=== PATIENT | female | born 1935 | race Caucasian/White ===

== ENCOUNTER → 2018-12-13 | Outpatient (CLI) | payer MEDICARE, OTHER ==
--- NOTE | 2018-12-15 16:30 | RADRPT ---
Echocardiogram Report Patient Name: TEODORO MEJIAPatient ID: [id number] : 1935 (83y 4m)Study Date: 12/13/2018 10:08:36 AM Gender: FAccession #: [id number] Tech: Willow Lo RDCS Location: ER Ref.Physician: JESSEE RAMIREZ Height(Cm): BSA: Weight(Kg): Quality: AdequateAccount #: Procedures: Echocardiographic Report: Transthoracic echocardiogram with complete 2D, M-Mode, and doppler examination. Indications: Mitral regurgitation. Measurements: 2D/M Mode Doppler Measurement Value Normal Range Measurement Value Normal Range LVIDd 2D 3.8 [ 3.8 - 5.2 ] cm SU Vmax 1.0 [ 2.0 - 4.0 ] cm2 LVIDs 2D 1.8 [ 2.2 - 3.5 ] cm SU VTI 1.0 [ 2.0 - 4.0 ] cm2 LVPWd 2D 1.1 [ 0.6 - 0.9 ] cm AV Mean Landon 175.3 [ 70.0 - 90.0 ] cm/sec IVSd 2D 1.1 [ 0.6 - 0.9 ] cm AV Mean PG 14.5 [ 2.0 - 4.0 ] mmHg AoR Diam 2D 2.7 [ 2.3 - 3.1 ] cm AV Peak Landon 263.0 [ 100.0 - 170.0 ] cm/sec EDV 2D 62.0 [ 46.0 - 106.0 ] ml AV Peak PG 27.7 [ 2.0 - 9.0 ] mmHg ESV 2D 9.9 [ 14.0 - 42.0 ] ml AV VTI 54.0 cm EF 2D 84.1 [ 54.0 - 74.0 ] percent LVOT Mean Landon 68.2 [ 60.0 - 80.0 ] cm/sec LA Dimen 2D 2.6 [ 2.7 - 3.8 ] cm LVOT Mean PG 2.2 [ 1.0 - 3.0 ] mmHg LVOT Diam 1.9 [ 2.1 - 2.5 ] cm LVOT Peak Landon 91.8 [ 70.0 - 110.0 ] cm/sec LVOT Area 2.9 cm2 LVOT Peak PG 3.4 [ 2.0 - 6.0 ] mmHg LVOT VTI 19.6 [ 20.0 - 30.0 ] cm MV E Peak Landon 0.5 [ 60.0 - 130.0 ] cm/sec MV A Peak Landon 0.8 [ 100.0 - 120.0 ] cm/sec MV E/A 0.7 [ 0.8 - 1.5 ] ratio MV Decel Time 380 [ 104 - 258 ] msec Lat E` Landon 0.1 [ 10.0 - 15.0 ] cm/sec Lateral E/E` 10.5 [ 1.0 - 2.0 ] ratio MV E/A 0.7 [ 0.8 - 1.5 ] ratio TR Peak Landon 2.2 [ 100.0 - 280.0 ] cm/sec TR Peak PG 19.0 mmHg RVSP 22.0 [ 10.0 - 36.0 ] mmHg RA Pressure 3.0 mmHg Findings: Left Ventricle: Normal left ventricular systolic function. Normal left ventricular cavity size. Mild concentric left ventricular hypertrophy. Ejection fraction is visually estimated at 60 %. Tissue Doppler/Mitral Doppler indices are consistent with impaired relaxation (Stage I diastolic dysfunction). Right Ventricle: Normal right ventricular size. Normal right ventricular systolic function. Left Atrium: The left atrium is normal in size. Right Atrium: The right atrium is normal in size. Mitral Valve: Mitral valve leaflets appear mildly thickened. Mild mitral annular calcification. Trace mitral regurgitation. Aortic Valve: Moderate to severe aortic stenosis. Aortic valve Max velocity 2.63 m/sec. Max PG 27.00 mmHg. Mean PG 15.00 mmHg. Aortic valve area 1.00 cm2. Aortic cusps appear severely calcified. Trace aortic valve regurgitation. Tricuspid Valve: Normal appearance of the tricuspid valve. Estimated peak PA systolic pressure 22 mmHg. There is trace tricuspid regurgitation. Pulmonic Valve: Pulmonic valve not well visualized. Pericardium: Normal pericardium with no significant pericardial effusion. Aorta: Normal aortic root. IVC: Normal size and normal respiratory collapse consistent with normal right atrial pressure. Conclusions: Normal left ventricular systolic function. Normal left ventricular cavity size. Mild concentric left ventricular hypertrophy. Ejection fraction is visually estimated at 60 %. Tissue Doppler/Mitral Doppler indices are consistent with impaired relaxation (Stage I diastolic dysfunction). Mitral valve leaflets appear mildly thickened. Mild mitral annular calcification. Trace mitral regurgitation. Moderate to severe aortic stenosis given sugnificant mismatvh betwwen calculated SU and gradient scross the vakve. Aortic valve Max velocity 2.63 m/sec. Max PG 27.00 mmHg. Mean PG 15.00 mmHg. Aortic valve area 1.00 cm2. Aortic cusps appear severely calcified. Trace aortic valve regurgitation. Normal appearance of the tricuspid valve. Estimated peak PA systolic pressure 22 mmHg. There is trace tricuspid regurgitation. Electronically Signed By: Jessee Ramirez 2018-12-15 16:29:52 PDT
== END | disposition home or self-care (01) ==
LOC: EKG 10:00
PROVIDERS: ATTEND Internal Medicine
DX: I34.0 Nonrheumatic mitral (valve) insufficiency (principal)
CPT/HCPCS: 93306

== ENCOUNTER → 2019-03-18 | Outpatient (CLI) | payer MEDICARE, OTHER ==
--- NOTE | 2019-03-18 16:47 | RADRPT ---
Echocardiogram Report Patient Name: TEODORO MEJIAPatient ID: [id number] : 1935 (83y 7m)Study Date: 03/18/2019 1:21:35 PM Gender: FAccession #: [id number] Tech: Reese Colvin [facility] Location: EKG Ref.Physician: JESSEE RAMIREZ Height(Cm): BSA: Weight(Kg): Quality: Technically Difficult StudyOrder Physician: JESSEE RAMIREZ Account #: Procedures: Echocardiographic Report: Transthoracic echocardiogram with complete 2D, M-Mode, and doppler examination. Indications: Mitral Valve Disorder (very combative). Measurements: 2D/M Mode Doppler Measurement Value Normal Range Measurement Value Normal Range LVIDd 2D 3.5 [ 3.8 - 5.2 ] cm SU VTI 1.8 [ 2.0 - 4.0 ] cm2 LVIDs 2D 2.5 [ 2.2 - 3.5 ] cm AV Mean Landon 1.8 [ 70.0 - 90.0 ] cm/sec LVPWd 2D 0.9 [ 0.6 - 0.9 ] cm AV Mean PG 16.0 [ 2.0 - 4.0 ] mmHg IVSd 2D 1.6 [ 0.6 - 0.9 ] cm AV VTI 43.7 cm IVS/LVPW 2D 1.8 ratio LVOT Mean Landon 1.1 [ 60.0 - 80.0 ] cm/sec AoR Diam 2D 2.4 [ 2.3 - 3.1 ] cm LVOT Mean PG 6.0 [ 1.0 - 3.0 ] mmHg LA/Ao 2D 1 ratio LVOT Peak Landon 1.6 [ 70.0 - 110.0 ] cm/sec LA Dimen 2D 2.3 [ 2.7 - 3.8 ] cm LVOT Peak PG 10.0 [ 2.0 - 6.0 ] mmHg LVOT Diam 2.0 [ 2.1 - 2.5 ] cm LVOT VTI 25.1 [ 20.0 - 30.0 ] cm LVOT Area 3.1 cm2 MV E Peak Landon 0.6 [ 60.0 - 130.0 ] cm/sec MV A Peak Landon 1.1 [ 100.0 - 120.0 ] cm/sec MV E/A 0.5 [ 0.8 - 1.5 ] ratio MV Decel Time 113 [ 104 - 258 ] msec MV E/A 0.5 [ 0.8 - 1.5 ] ratio RA Pressure 3.0 mmHg Findings: Left Ventricle: Normal left ventricular systolic function. Normal left ventricular cavity size. Moderate asymmetric septal hypertrophy. Ejection fraction is visually estimated at 60-65 %. Tissue Doppler/Mitral Doppler indices are consistent with impaired relaxation (Stage I diastolic dysfunction). Right Ventricle: Normal right ventricular size. Normal right ventricular systolic function. Left Atrium: The left atrium is normal in size. Right Atrium: The right atrium is normal in size. Mitral Valve: Mild mitral leaflet calcification. Mild mitral annular calcification. Trace mitral regurgitation. Aortic Valve: Mild aortic stenosis. Aortic valve Max velocity 2.98 m/sec. Max PG 35.60 mmHg. Mean PG 16.00 mmHg. Aortic valve area 1.80 cm2. Aortic cusps appear moderately calcified. Tricuspid Valve: Normal appearance of the tricuspid valve. Unable to obtain RVSP due to minimal presence of tricuspid regurgitation. Pericardium: Trivial pericardial effusion. Aorta: Normal aortic root. IVC: Normal size and normal respiratory collapse consistent with normal right atrial pressure. Conclusions: Normal left ventricular systolic function. Normal left ventricular cavity size. Moderate asymmetric septal hypertrophy. Ejection fraction is visually estimated at 60-65 %. Tissue Doppler/Mitral Doppler indices are consistent with impaired relaxation (Stage I diastolic dysfunction). ). Mild mitral leaflet calcification. Mild mitral annular calcification. Trace mitral regurgitation. Mild aortic stenosis. Aortic valve Max velocity 2.98 m/sec. Max PG 35.60 mmHg. Mean PG 16.00 mmHg. Aortic valve area 1.80 cm2. Aortic cusps appear moderately calcified. Normal appearance of the tricuspid valve. Unable to obtain RVSP due to minimal presence of tricuspid regurgitation. Trivial pericardial effusion. Electronically Signed By: Jessee Ramirez 2019-03-18 16:46:08 PDT
== END | disposition home or self-care (01) ==
LOC: EKG 13:00
PROVIDERS: ATTEND Internal Medicine
DX: I34.0 Nonrheumatic mitral (valve) insufficiency (principal)
CPT/HCPCS: 93306